=== PATIENT | male | born 1965 | race Asian ===

== ENCOUNTER → 2018-11-03 | Outpatient (CLI) | payer OTHER | LOC: CAT 11:35 | DX: Z13.6 Encounter for screening for cardiovascular disorders (principal); E78.00 Pure hypercholesterolemia, unspecified; I25.10 Atherosclerotic heart disease of native coronary artery without angina pectoris ==

== ENCOUNTER → 2021-01-22 | Outpatient (CLI) | payer OTHER | LOC: CAT 13:32 | DX: Z13.6 Encounter for screening for cardiovascular disorders (principal); E78.00 Pure hypercholesterolemia, unspecified; I25.10 Atherosclerotic heart disease of native coronary artery without angina pectoris ==